=== PATIENT | male | born 1995 | race African-American/Black ===

== ENCOUNTER 2019-02-23 12:26 | Emergency (ER) | payer OTHER ==
[~2019-02-23] VITALS: Ht 177.8 cm; Wt 83.9 kg
[2019-02-23] MEDS ORDERED: ALBUTEROL SULFATE 2.5 MG/3 ML NEBU NEB ONE (12:45)
[2019-02-23] MEDS ORDERED: IPRATROPIUM BROMIDE 0.5 MG/2.5 ML NEBU NEB ONE (12:45)
[2019-02-23] MEDS ORDERED: predniSONE 20 MG TABLET PO ONE (12:45)
[2019-02-23] MEDS ORDERED: predniSONE 50 MG TABLET ONE (12:51)
[2019-02-23] MEDS ORDERED: predniSONE 10 MG TABLET ONE (12:51)
[2019-02-23] MEDS ORDERED: ALBUTEROL SULFATE 2.5 MG/3 ML NEBU ONE (12:53)
[2019-02-23] MEDS ORDERED: IPRATROPIUM BROMIDE 0.5 MG/2.5 ML NEBU ONE (12:53)
--- NOTE | 2019-02-23 13:25 | NUR ---
Pt states feeling better after breathing tx, and requesting to be discharged.
[2019-02-23 13:47] VITALS: BP 120/76
--- NOTE | 2019-02-23 13:48 | NUR ---
Patient discharged to home in stable conditon. Written and verbal after care instructions given. Patient verbalizes understanding of instructions.
== END 2019-02-23 13:48 | disposition home or self-care (01) ==
LOC: ER 12:26
DX: J45.909 Unspecified asthma, uncomplicated (principal)
CPT/HCPCS: 94640; 99283; J7512 ×2; A4663; J3590

== ENCOUNTER 2019-05-23 09:12 | Emergency (ER) | payer OTHER ==
[~2019-05-23] VITALS: Ht 180.3 cm; Wt 89.8 kg
--- NOTE | 2019-05-23 09:42 | NUR ---
PT WAS EVALUATED BY DR MADISON. PT WAS D/C'D TO HOME. D/C INSTRUCTIONS GIVEN TO THE PT.
[2019-05-23 09:43] VITALS: BP 136/88
== END 2019-05-23 09:43 | disposition home or self-care (01) ==
LOC: ER 09:12
DX: B34.9 Viral infection, unspecified (principal); J45.909 Unspecified asthma, uncomplicated
CPT/HCPCS: A4663